=== PATIENT | female | born 1955 | race Caucasian/White ===

== ENCOUNTER → 2019-12-10 18:11 | Outpatient (CLI) | payer MEDICARE, OTHER, SELFPAY ==
--- NOTE | 2019-12-10 18:19 | DI.MRI.S_ITS ---
PROCEDURE: MR LUMBAR SPINE WO CON INDICATIONS: LUMBAGO WITH SCIATICA,RIGHT SIDE TECHNIQUE: Noncontrast sagittal T1 spin echo and T2 fast echo, sagittal STIR, axial T1 and T2 fast spin echo through the lumbar spine. In cases with scoliosis, additional coronal T2 fast spin echo may be performed. COMPARISON: None. FINDINGS: Image quality: Excellent. Alignment and Curvature: There is normal bony alignment. Bone Marrow: Marrow is of normal overall signal. No acute vertebral body compression fractures. Spinal Cord: Conus medullaris terminates at the T12 level. Visualized cord demonstrates normal signal and size. Paraspinous Soft Tissues: No paravertebral masses. The right kidney is markedly atrophic. L1-L2: Moderate disc desiccation and height loss. Broad-based disc bulge. Severe facet ligamentum flavum hypertrophy. Mild canal stenosis. Moderate right foraminal narrowing. No left neural foraminal stenosis. L2-L3: Mild disc desiccation and height loss. Broad-based disc bulge. Mild facet ligamentum flavum hypertrophy. No canal stenosis. No neural foraminal narrowing. L3-L4: Mild disc desiccation and height loss. Broad-based disc bulge. Moderate facet ligamentum flavum hypertrophy. No canal stenosis. Mild bilateral neural foraminal narrowing. L4-L5: Moderate disc desiccation and height loss. Severe facet ligamentum flavum hypertrophy. Mild canal stenosis. Moderate right and mild left neural foraminal stenosis. L5-S1: Severe disc desiccation and height loss. Broad-based disc bulge. No canal stenosis. Moderate bilateral foraminal narrowing. IMPRESSION: 1. Disc desiccation and height loss throughout the lumbar spine most severe at L5-S1. 2. Mild canal stenosis at L1-2 and at L4-5. 3. Moderate right neuroforaminal stenosis at L1-2 and L4-5, and moderate bilateral foraminal stenosis at L5-S1. Dictated by: Billie Rose M.D. on 12/13/2019 at 10:44 Approved by: Billie Rose M.D. on 12/13/2019 at 11:01
== END ==
PROVIDERS: Referring Provider Orthopaedic Surgery; Visit Provider Orthopaedic Surgery
DX: M54.41 Lumbago with sciatica, right side (principal); M48.061 Spinal stenosis, lumbar region without neurogenic claudication; M48.07 Spinal stenosis, lumbosacral region
CPT/HCPCS: 72148